=== PATIENT | female | born 1980 | race Caucasian/White ===

== ENCOUNTER 2019-11-01 05:27 | Day surgery (SDC) | payer OTHER, SELFPAY ==
--- NOTE | 2019-10-29 12:26 | HP.PCM_ITS ---
History and Physical Date of Admission: 11/01/19 Laine Salmeron Physician Specialty: ROW BOSS HOEING H&P Signed Encounter Date: 10/18/2019 Expand AllCollapse All Hide copied text Yolanda for details Jaki Seay is a 39 year old female who presents for sterilization consultation and preoperative visit. Patient would like laparoscopic bilateral salpingectomy. Patient is scheduled for November 01, 2019. Patient declines any further long-acting reversible contraceptive. Patient currently does have the Mirena IUD in place and is requesting removal at the time of her surgery. Patient denies any concerns today. ? PAST MEDICAL HISTORY PAST MEDICAL HISTORY Diagnosis Date ? Gestational diabetes mellitus, class A1 03/08/2016 ? History of pre-eclampsia in prior , currently ? ? NEGATIVE MEDICAL HISTORY ? ? PAST SURGICAL HISTORY PAST SURGICAL HISTORY Procedure Laterality Date ? DELIVERY ONLY N/A 05/21/2016 ? PAST SURGICAL HISTORY OF ? 1995 ? cyst removal off of head ? REDUCTION OF LARGE BREAST Bilateral 01/16/2019 ? REMOVAL OF TONSILS,<12 Y/O ? ? ? Tonsillectomy ? FAMILY HISTORY FAMILY HISTORY Problem Relation Age of Onset ? Hypertension Father ? ? Heart Father ? ? mild heart attack ? Stroke Father ? ? Heart Maternal Grandmother ? ? Cancer Maternal Grandfather ? ? skin cancer ? Kidney Disease Maternal Grandfather ? ? SOCIAL HISTORY Social History ? Tobacco Use ? Smoking status: Former Smoker ? ? Last attempt to quit: 03/21/1999 ? ? Years since quittin.5 ? Smokeless tobacco: Never Used Substance Use Topics ? Alcohol use: Yes ? ? Comment: occ, not while ? Drug use: No ? CURRENT MEDICATIONS Current Outpatient Medications Medication Sig ? levonorgestrel (MIRENA) 20 mcg/24 hr (5 years) IUD Inserted in office ? MULTIVITAMIN ORAL Take by mouth. ? simethicone, chewable (MYLICON) 80 mg chewable tablet Take 1 tablet by mouth every 6 hours as needed. ? ibuprofen (MOTRIN) 600 mg tablet Take 1 tablet by mouth every 6 hours as needed. ? No current facility-administered medications for this visit. ? Allergies As of Date: 10/18/2019 (No Known Allergies) Fully Assessed 10/18/2019 ? ? REVIEW OF SYSTEMS Abdomen: no pain Bladder: no dysuria.. Expanded ROS: GENERAL: Negative for fever Allergies and current medication updated:Yes ? EXAM: BP 118/76 Wt 145 lb (65.8kg) LMP 04/14/2015 GENERAL: pleasant, female in no apparent distress HEENT: Normocephalic and atraumatic NECK: full range of motion DERMATOLOGY: Normal, without lesions, non-icteric and non-hirsute NEURO: alert and oriented x3,exam grossly non-focal EXTREMITIES: normal ? ASSESSMENT AND PLAN: Encounter Diagnosis ? ? ICD-10-CM ? 1. Sterilization consult Z30.09 ? 2. Pre-op exam Z01.818 ? ? 3. Pt has been counseled on risks/benefits and alternatives of surgery including but not limited to anesthesia, bleeding, infection, injury to pelvic structures including bowel, bladder, ureters and vessels. Pt wishes to proceed with surgery at this time. 4. Motrin and mylicon given for post op 5. covid testing reviewed ? Laine Nicholson MD ?
[2019-11-01 05:48] VITALS: BP 134/84; PULSE 79; RESP 14; TEMP 36.4; O2SAT 97; BMI 26.9
[2019-11-01 05:53] LABS: Internal QC Validated? YES +Cl - CLEAR BKGD; Pregnancy, Urine Negative Negative
[2019-11-01 06:00] LABS: Hemoglobin 13.2 g/dL (12.0-15.0); Mean Corp Hgb Conc 33.8 g/dL (32-36); Mean Corpuscular Hgb 31.9 pg (27.0-32.0); Mean Corpuscular Volume 94.2 fL (81-99); Platelet Count 354 K/mm3 (150-450); RBC Distribution Width CV 11.8 % (11.6-14.6); RBC Distribution Width SD 40.3 fl (35.1-43.9); Red Blood Count 4.14 M/mm3 (4.2-5.4); White Blood Count 7.7 K/mm3 (4.4-11.0)
[2019-11-01] MEDS: Lactated Ringers 1,000 ML 100 ML IV (06:09)
--- NOTE | 2019-11-01 07:22 | DCINST_ITS ---
Discharge Diet: No Restrictions, - - Increase fluid intake for 48 hours. Discharge Activity: Return to Normal Activity, May Drive - when you are no longer taking narcotic pain medications., May Shower, May Take a Tub Bath - in 7 days., - - Ambulate often the next week after surgery. May resume sexual activity in: 1 week Lifting Restrictions: 20 Additional Activity Instructions:: Nothing in the vagina for the next 5 days. Call your doctor if your incision/area has: Continuous Slow Oozing, Sudden Increased Bleeding, Increased Pain/ Swelling, Increased Redness, Foul Smelling Discharge, Swelling at the incision site Call your doctor if you observe: Fever of 101 or Higher, Using more than one pad per hour Allergies/Adverse Reactions: Allergies No Known Allergies Allergy (Verified 10/24/19 13:14) Medications to take at Discharge Multivit/Iron/FA/K/Herb No.244 [Alive Women's Energy Mv Tablet] 1 ea PO DAILY 10/24/19 Primary Care Physician: Care Physician,No Primary [Primary Care Provider] - Test Results: Test results from this visit will be discussed in further detail at your follow- up appointment, if applicable. Please Follow Up With: Laine Nicholson MD When: IN 2 WEEKS- [phone] (CAN DO VIRTUAL VISIT)
--- NOTE | 2019-11-01 07:30 | FALS_PTH ---
PATIENT: KATARZYNA BETTENCOURT [place] [facility] [place][id number] AGE/SX: 39/F ROOM: RE11/01/[address]: Dr. Laine Nicholson, MDDOB: 1980 BED: DIS: 11/01/2019 SPEC #: [id number] RECD: 11/01/19 08:58 STATUS: JULIA MAHESH #: [id number] YASMANI: 11/01/19 07:[address]: Laine Nicholson DEPT: SURGICAL PATHOLOGY RECD BY: Damian Pond ENTERED: 11/01/19 09:51 SP TYPE: FALL TUBES OTHR DR: Malou Primary Care Phys Tissues: Fallopian tube Procedures: Surgery Specimen Level II HEADER OPERATION: Laparoscopic salpingectomy, removal IUD (Mirena) PRE-OP DIAGNOSIS: Sterilization TISSUE SUBMITTED: Bilateral fallopian tubes MICROSCOPIC DIAGNOSIS Bilateral fallopian tubes, salpingectomy: Bilateral fallopian tubes including fimbrial ends, no pathologic diagnosis. A paratubal cyst. VIVIAN:sue 11/02/19 MICROSCOPIC DESCRIPTION Slides are reviewed. GROSS DESCRIPTION Received in fixative is one container labeled with the patient's name and designated bilateral fallopian tubes. The specimen consists of bilateral fallopian tubes including fimbrial ends. The fallopian tubes are not identified as right or left. One fallopian tube measures 5.5 cm in length and 0.5 cm in diameter. The fimbrial end is identified. A paratubal cyst is noted measuring 1 cm in greatest dimension. The second fallopian tube is received in two pieces. The distal portion including fimbrial end measures 2.5 cm in length and 0.6 cm in diameter. The smaller proximal segment measures 0.8 cm in length and 0.5 cm in diameter. Sections reveal unremarkable cut surfaces. Hand Packer/Packager sections are submitted in two cassettes as follows: 1 - intact fallopian tube and paratubal cyst, 2 - second fallopian tube in two pieces. / VIVIAN:sue 11/01/19 TC:5 CPT: 57124 x2
[2019-11-01] MEDS: Bupivacaine Mpf 0.5% 30 ML VIAL (08:00)
--- NOTE | 2019-11-01 08:06 | OP.PCM_ITS ---
Report of Operation Date of Procedure: 11/01/19 Pre-Operative Diagnosis: Desires sterilization, REMOVAL OF IUD Post-Operative Diagnosis: SAME Surgery/Procedure Performed:: LAPAROSCOPIC BILATERAL SALPIGNECTOMY , REMOVAL MIRENA IUD Type of Anesthesia:: General Special Medications: 0.5% MARCAINE Specimen's removed: BILATERAL FALLOPIAN TUBES Drains: NONE Estimated Blood Loss (mL): <5CC Fluids Replaced: 700 Description of Procedure: After informed consent was obtained patient was taken to the operating room she was placed in supine position she was given anesthesia. She was then placed in the [facility] and she was prepped and draped in normal sterile fashion. Bladder was drained prior to the start of procedure. At this time attention was turned to the vaginal portion where weighted speculum placed at posterior fornix vagina single-tooth tenaculum was used to gently grasp the anterior lip of the cervix. uterus was gently sounded to approximately 8 cm. Mirena IUD removed with heather- strings were in endocervical canal. Uterine manipulator was placed without difficulty. Legs then placed in parallel with the abdomen the tenaculum and the weighted speculum were removed. 2 towel clamps were placed at level of umbilicus. Marcaine was injected infraumbilical and a small incision was made. The 5 mm trocar was placed under direct visualization. CO2 gas was used to insufflate the intra-abdominal cavity. Upon inspection no gross abnormalities appreciated- the uterus tubes and ovaries appeared to be normal. At this time then the LLQ and RLQ ports were placed First Marcaine was injected and small incision was made a knife and the 5 mm trocars were placed. At this time then tubes were traced back to the fimbriated ends. Ligasure was used to coagulate and ligate along mesosalpynx bilaterally until tubes removed completely. Good hemostasis was appreciated. At this time procedure was deemed complete successful. The gas was desufflated on from the intra-abdominal cavity. The trochars were removed. Skin was closed using 4-0 Monocryl in a subcutaneous fashion. Dermabond glue was placed. Instrument lap and needle counts were correct ?2. The uterine manipulator was removed. Vaginal sweep was performed it was negative. There were no complications anticipated normal postoperative course for this patient. Grafts/Implants Used: none - Complications none - Admit VTE Documentation VTE Present on Admission: Yes VTE Mechan Device Prophylaxis: SCD's VTE Pharm Prophylaxis ordered?: No
[2019-11-01 08:18] VITALS: BP 111/68; BP 134/84; PULSE 102; RESP 16; TEMP 36.2; O2SAT 95
[2019-11-01 08:30] VITALS: BP 107/69; BP 134/84; PULSE 87; RESP 16; O2SAT 99
[2019-11-01 08:45] VITALS: BP 111/75; BP 134/84; PULSE 73; RESP 16; TEMP 36.2; O2SAT 100
[2019-11-01 09:14] VITALS: BP 134/84; BP 136/84; PULSE 75; RESP 16; TEMP 36.2; O2SAT 98
== END 2019-11-01 09:40 | disposition home or self-care (01) ==
LOC: SDC 05:29 → AC 05:30
PROVIDERS: Anesthesiology; Referring Provider Obstetrics & Gynecology; Visit Provider Obstetrics & Gynecology
PROC: (CPT 58661; principal; 2019-11-01 07:15)
DX: Z30.2 Encounter for sterilization (principal); Z11.59 Encounter for screening for other viral diseases; Z45.89 Encounter for adjustment and management of other implanted devices; Z87.891 Personal history of nicotine dependence; E78.00 Pure hypercholesterolemia, unspecified
CPT/HCPCS: 58301; 58661; 81025; 85027; 87635; 88302; 94799; J7120; J2405; U0003